=== PATIENT | female | born 1945 | race Two or more races ===

== ENCOUNTER → 2016-05-28 | Outpatient (CLI) | payer MEDICARE, OTHER ==
[~2016-05-28] MED LIST: ATENOLOL25 MG ORAL; CALCIUM CARBON500 M1 PO; COZAAR50 MG ORAL; DITROPAN10 MG ORAL; FERROUS SULFAT325 MG ORAL; LEVOTHYROXINE50 MCG ORAL; NORVASC5 MG ORAL; SIMVASTATIN20 MG ORAL
[2016-05-28 15:11] VITALS: BP 124/67
--- NOTE | 2016-05-28 15:36 | GI Progress Note ---
Assessment/Plan Problems: (1) GERD (gastroesophageal reflux disease) ICD Codes: K21.9 - Gastro-esophageal reflux disease without esophagitis SNOMED: 291861688 (2) Anemia ICD Codes: D64.9 - Anemia, unspecified SNOMED: 486138955 (3) Abdominal pain ICD Codes: R10.9 - Unspecified abdominal pain SNOMED: 11920343 Status: stable Status Narrative Seen with Dr. Russ. Assessment/Plan rx Bentyl cont dexilant recommend align RTC x 2 weeks Subjective Gastrointestinal/Abdominal: Reports: abdominal pain, other - gerd Objective Last 24 Hour Vital Signs Date Time Temp Pulse Resp B/P Pulse Ox O2 Delivery O2 Flow Rate FiO2 05/28/16 15:11 98.0 68 16 124/67 General Appearance: no apparent distress, alert Cardiovascular: normal rate Respiratory/Chest: normal breath sounds, no respiratory distress Abdominal Exam: normal bowel sounds, non tender, soft Extremities: normal range of motion Objective Endoscopy Procedure Note Indication for Procedure: anemia Procedures Performed: EGD, colonoscopy Operative Findings/Diagnosis: diverticulosis MARLON RUSS - Dec 26, 2015 10:24 Alina Han N.P. May 28, 2016 15:36
== END | disposition home or self-care (01) ==
LOC: PAN 14:57
DX: K21.9 Gastro-esophageal reflux disease without esophagitis (principal); D64.9 Anemia, unspecified; R10.9 Unspecified abdominal pain
CPT/HCPCS: 99211

== ENCOUNTER → 2016-06-19 | Outpatient (CLI) | payer MEDICARE, OTHER ==
[~2016-06-19] MED LIST changes: +ALIGN4 M1 PO; +BENTYL10 MG ORAL; +DEXILANT30 MG ORAL
--- NOTE | 2016-06-19 14:25 | GI Progress Note ---
Assessment/Plan Problems: (1) Bloating symptom ICD Codes: R14.0 - Abdominal distension (gaseous) SNOMED: 178061248 (2) Abdominal bloating ICD Codes: R14.0 - Abdominal distension (gaseous) SNOMED: 073191935 (3) Abdominal pain ICD Codes: R10.9 - Unspecified abdominal pain SNOMED: 68844237 (4) GERD (gastroesophageal reflux disease) ICD Codes: K21.9 - Gastro-esophageal reflux disease without esophagitis SNOMED: 499815502 (5) Anemia ICD Codes: D64.9 - Anemia, unspecified SNOMED: 687755345 Status: stable Status Narrative Seen with Dr. Russ. Assessment/Plan ordered Breath Test @ [facility] - hold dexilant - hold align cont Bentyl RTC post procedure. Subjective Subjective abdominal bloating Objective T 98.1 BP 130/60 P 64 100 RA General Appearance: alert Cardiovascular: normal rate Respiratory/Chest: lungs clear, normal breath sounds, no respiratory distress Abdominal Exam: normal bowel sounds, non tender, soft Extremities: normal range of motion Alina Han N.P. Jun 19, 2016 14:25
[2016-06-19 14:38] VITALS: BP 130/60
== END | disposition home or self-care (01) ==
LOC: PAN 13:42
DX: R14.0 Abdominal distension (gaseous) (principal); K21.9 Gastro-esophageal reflux disease without esophagitis; D64.9 Anemia, unspecified; R10.9 Unspecified abdominal pain
CPT/HCPCS: 99211

== ENCOUNTER 2016-08-06 13:44 | Outpatient (CLI) | payer MEDICARE, OTHER ==
--- NOTE | 2016-08-06 14:03 | GI Progress Note ---
Assessment/Plan Problems: (1) Small intestinal bacterial overgrowth ICD Codes: K63.89 - Other specified diseases of intestine SNOMED: 372768142 (2) Bloating symptom ICD Codes: R14.0 - Abdominal distension (gaseous) SNOMED: 196918495 (3) GERD (gastroesophageal reflux disease) ICD Codes: K21.9 - Gastro-esophageal reflux disease without esophagitis SNOMED: 276374788 (4) Anemia ICD Codes: D64.9 - Anemia, unspecified SNOMED: 901992137 (5) Abdominal bloating ICD Codes: R14.0 - Abdominal distension (gaseous) SNOMED: 357447277 (6) Abdominal pain ICD Codes: R10.9 - Unspecified abdominal pain SNOMED: 17876968 Status: stable Status Narrative Seen with Dr. Russ. Assessment/Plan BT, positive for SIBO >> tx Xifaxin elevated CEA, will monitor RTC x 3 months Subjective Subjective abdominal bloating Objective T 98 BP 133/53 P 74 93 RA Denies weight loss. General Appearance: no apparent distress, alert Cardiovascular: normal rate Respiratory/Chest: normal breath sounds, no respiratory distress Abdominal Exam: normal bowel sounds, non tender, soft Extremities: normal range of motion Alina Han N.P. Aug 06, 2016 14:03
== END 2016-08-06 14:15 | disposition home or self-care (01) ==
LOC: PAN 13:44
DX: A04.8 Other specified bacterial intestinal infections (principal); R14.0 Abdominal distension (gaseous); K21.9 Gastro-esophageal reflux disease without esophagitis; D64.9 Anemia, unspecified; R10.9 Unspecified abdominal pain
CPT/HCPCS: 99211

== ENCOUNTER 2017-02-14 20:11 | Emergency (ER) | payer MEDICARE, OTHER ==
[~2017-02-14] VITALS: Ht 152.4 cm; Wt 73.0 kg
[2017-02-14 20:30] VITALS: BP 143/68
[2017-02-14] MEDS ORDERED: KENALOG 0.5% CR15 GM APPLIC (20:41)
[2017-02-14 20:50] VITALS: BP 143/68
--- NOTE | 2017-02-16 07:26 | Emergency Room Report ---
History of Present Illness General Chief Complaint: Skin Rash/Abscess Source: Patient, Family Member Present Illness HPI Patient is a 71-year-old female presented after increased left upper extremity discomfort. The patient gradual onset of symptoms. Patient reported having approximately one day of increased itchiness to her left hand. This was associated with increased swelling. Patient prior history of breast cancer and lymph node dissection on the left side. She denied any fever. She felt this may have been related to insect sting from a bee. Allergies: Coded Allergies: No Known Allergies (Unverified , 10/31/15) Patient History Reviewed Nursing Documentation: PMH: Agreed, PSxH: Agreed Nursing Documentation-PMH Hx Cardiac Problems: Yes Hx Hypertension: Yes Hx Cancer: Yes Hx Gastrointestinal Problems: Yes Hx Neurological Problems: No Review of Systems All Other Systems: negative except mentioned in HPI Physical Exam Vital Signs Date Time Temp Pulse Resp B/P (MAP) Pulse Ox O2 Delivery O2 Flow Rate FiO2 02/14/17 20:16 98.2 74 16 143/68 98 Room Air General Appearance: well appearing, no apparent distress, alert, GCS 15 Head: normocephalic, atraumatic ENT: hearing grossly normal, normal voice Neck: full range of motion, supple Respiratory: no respiratory distress, speaking full sentences Cardiovascular #1: normal inspection Musculoskeletal: normal inspection, back normal, no calf tenderness Neurologic: normal inspection, alert, oriented x3, normal gait Psychiatric: mood/affect normal Skin: other - swelling to finger with papular lesion no erythema Medical Decision Making Diagnostic Impression: Primary Impression: Dermatitis ER Course Patient presented for skin rash. Differential diagnosis included was not limited to cellulitis, DVT, dyshidrotic eczema, Raynaud's disease, among others. Patient's benign exam and does not appear to require any further imaging or laboratory testing at this time. The patient presented to contact dermatitis versus eczema. The patient was given prescription for triamcinolone cream. Last Vital Signs Date Time Temp Pulse Resp B/P (MAP) Pulse Ox O2 Delivery O2 Flow Rate FiO2 02/14/17 20:50 98.2 78 16 143/68 98 Room Air Status: improved Disposition: HOME, SELF-CARE Condition: Stable Scripts Triamcinolone Acet (Triamcinolone Acetonide) 15 Gm Cream..g. 15 GM APPLIC DAILY, #15 GM Prov: Vance Ta 02/14/17 Referrals: MARLON VALDIVIA (PCP) Patient Instructions: Contact Dermatitis Vance Ta Feb 16, 2017 07:26
== END 2017-02-14 20:50 | disposition home or self-care (01) ==
LOC: EMR 20:25
DX: L30.9 Dermatitis, unspecified (principal); I10 Essential (primary) hypertension
CPT/HCPCS: 99283

== ENCOUNTER 2017-03-22 07:39 | Inpatient (IN) | payer MEDICARE, OTHER ==
[~2017-03-22] VITALS: Ht 152.4 cm; Wt 77.1 kg
[~2017-03-22 07:39] MED LIST changes: +KENALOG 0.5% CR15 GM APPLIC
[2017-03-22] MEDS ORDERED: Ipratropium 0.02% Inh Soln 2.5ml UD HHN ONE (08:15)
[2017-03-22] MEDS ORDERED: Albuterol ud Inhalation HHN ONE (08:15)
--- NOTE | 2017-03-22 08:16 | Emergency Room Report ---
History of Present Illness General Chief Complaint: Upper Respiratory Illness Source: Patient, Family Member - daughter translated Present Illness HPI The patient presents with several days of cough. She also has some chest pain is 5/10 when she coughs. There is no nausea vomiting diarrhea dysuria rashes joint pain. Is a dry cough that is not productive. She does not use an inhaler home. Known renal insufficiency. No diabetes. Allergies: Coded Allergies: No Known Allergies (Unverified , 10/31/15) Patient History Past Medical History: see triage record Past Surgical History: hysterectomy, other - masectomy L, knee surgery, cataract surgery Social History: Denies: smoking, alcohol use, drug use Social History Narrative drove herself here Reviewed Nursing Documentation: PMH: Agreed, PSxH: Agreed Nursing Documentation-PMH Past Medical History: No Stated History Hx Cardiac Problems: Yes Hx Hypertension: Yes Hx Cancer: Yes Hx Gastrointestinal Problems: Yes Hx Neurological Problems: No Review of Systems All Other Systems: negative except mentioned in HPI Physical Exam Vital Signs Date Time Temp Pulse Resp B/P (MAP) Pulse Ox O2 Delivery O2 Flow Rate FiO2 03/22/17 07:49 98.4 86 22 148/79 95 Room Air Sp02 EP Interpretation: reviewed, abnormal General Appearance: well appearing, no apparent distress, GCS 15 Head: normocephalic Eyes: bilateral eye normal inspection, bilateral eye PERRL - cataract surgery ENT: moist mucus membranes Neck: supple Respiratory: crackles, wheezing - post tussive, expiration, other - L masectomy Cardiovascular #1: regular rate, rhythm Cardiovascular #2: 2+ radial (R) Gastrointestinal: normal inspection, normal bowel sounds, non tender, no mass, non-distended Musculoskeletal: back normal, gait/station normal, normal range of motion Neurologic: alert, oriented x3, grossly normal Psychiatric: mood/affect normal Skin: normal inspection, warm/dry Medical Decision Making Diagnostic Impression: Primary Impression: Pneumonia Qualified Codes: J18.1 - Lobar pneumonia, unspecified organism Additional Impressions: Renal insufficiency Bronchospasm ER Course The patient presents with cough and chest pain. Differential includes acute myocardial infarction, influenza, bronchitis, spasm, pneumonia amongst others. Her exam is consistent with bronchospasm. She'll be evaluated with EKG and a chest x-ray with labs. She'll be treated with a breathing treatment in Tylenol for the chest pain. Labs will be obtained. Patient is coughing less as after breathing treatment. EKG is right bundle branch block no acute injury. X-ray shows right middle lobe infiltrate with Mica B line's. Labs are significant for negative troponin BNP with a normal white count. Influenza is negative also. The patient is reassessed she states she's no better at this time. She declines any more pain medication. Due to the infiltrate the patient will be admitted to the hospital and IV antibiotics started after blood cultures obtained. Due to VS, no lactate ordered. Poor toleration of IV azithromycin - given PO. Dr. Cotton requested Dr. Ibrahim who requested Dr. Kelly. Admit med. Laboratory Tests Test 03/22/17 08:30 03/22/17 09:10 White Blood Count 7.6 K/UL (4.8-10.8) Red Blood Count 4.64 M/UL (4.20-5.40) Hemoglobin 13.3 G/DL (12.0-16.0) Hematocrit 41.2 % (37.0-47.0) Mean Corpuscular Volume 89 FL (80-99) Mean Corpuscular Hemoglobin 28.6 PG (27.0-31.0) Mean Corpuscular Hemoglobin Concent 32.3 G/DL (32.0-36.0) Red Cell Distribution Width 11.5 % (11.6-14.8) L Platelet Count 222 K/UL (150-450) Mean Platelet Volume 9.2 FL (6.5-10.1) Neutrophils (%) (Auto) 47.5 % (45.0-75.0) Lymphocytes (%) (Auto) 24.7 % (20.0-45.0) Monocytes (%) (Auto) 13.7 % (1.0-10.0) H Eosinophils (%) (Auto) 12.5 % (0.0-3.0) H Basophils (%) (Auto) 1.6 % (0.0-2.0) Prothrombin Time 11.0 SEC (9.30-11.50) Prothrombin Time INR 1.1 (0.9-1.1) PTT 27 SEC (23-33) Sodium Level 137 MMOL/L (136-145) Potassium Level 3.9 MMOL/L (3.5-5.1) Chloride Level 102 MMOL/L (98-107) Carbon Dioxide Level 28 MMOL/L (21-32) Anion Gap 7 mmol/L (5-15) Blood Urea Nitrogen 30 mg/dL (7-18) H Creatinine 1.8 MG/DL (0.55-1.30) H Estimate Glomerular Filtration Rate mL/min (>60) Glucose Level 103 MG/DL (74-106) Calcium Level 9.2 MG/DL (8.5-10.1) Total Bilirubin 0.4 MG/DL (0.2-1.0) Aspartate Amino Transferase (AST) 25 U/L (15-37) Alanine Aminotransferase (ALT) 26 U/L (12-78) Alkaline Phosphatase 77 U/L (46-116) Total Creatine Kinase 122 U/L (26-308) Troponin I 0.000 ng/mL (0.000-0.056) Pro-B-Type Natriuretic Peptide 88 pg/mL (0-125) Total Protein 7.8 G/DL (6.4-8.2) Albumin 3.7 G/DL (3.4-5.0) Globulin 4.1 g/dL Albumin/Globulin Ratio 0.9 (1.0-2.7) L Urine Color Pale yellow Urine Appearance Clear Urine pH 6 (4.5-8.0) Urine Specific [place] 1.010 (1.005-1.035) Urine Protein 2+ (NEGATIVE) H Urine Glucose (UA) Negative (NEGATIVE) Urine Ketones Negative (NEGATIVE) Urine Occult Blood 1+ (NEGATIVE) H Urine Nitrite Negative (NEGATIVE) Urine Bilirubin Negative (NEGATIVE) Urine Urobilinogen Normal MG/DL (0.0-1.0) Urine Leukocyte Esterase 2+ (NEGATIVE) H Urine RBC 0-2 /HPF (0 - 2) Urine WBC 2-4 /HPF (0 - 2) Urine Squamous Epithelial Cells Few /LPF (NONE/OCC) Urine Bacteria Few /HPF (NONE) Microbiology Date/Time Source Procedure Growth Status 03/22/17 08:10 Nasal Nares Influenza Types A,B Antigen (MAVIS) - Final Complete EKG Diagnostic Results Rate: normal Rhythm: NSR ST Segments: no acute changes Rhythm Strip Diag. Results EP Interpretation: yes Rhythm: NSR, no PVC's, no ectopy Chest X-Ray Diagnostic Results Chest X-Ray Diagnostic Results : Chest X-Ray Ordered: Yes # of Views/Limited/Complete: 1 View Indication: Other EP Interpretation: Yes Interpretation: no effusion, no pneumothorax, other - [employer] L Impression: Other Electronically Signed by: Electronically signed by Poli Tena MD Status: improved Referrals: MARLON COTTON (PCP) Poli Tena M.D. Mar 22, 2017 08:16
[2017-03-22 08:46] LABS: BASOPHILS % (AUTO) 1.6 % (0.0-2.0); EOSINOPHILS % (AUTO) 12.5 % (0.0-3.0); HEMATOCRIT 41.2 % (37.0-47.0); HEMOGLOBIN 13.3 G/DL (12.0-16.0); LYMPHOCYTES % (AUTO) 24.7 % (20.0-45.0); MEAN CORPUSCULAR VOLUME 89 FL (80-99); MONOCYTES % (AUTO) 13.7 % (1.0-10.0); NEUTROPHILS % (AUTO) 47.5 % (45.0-75.0); PLATELET COUNT 222 K/UL (150-450); RED BLOOD COUNT 4.64 M/UL (4.20-5.40); RED CELL DISTRIBUTION WIDTH 11.5 % (11.6-14.8); WHITE BLOOD COUNT 7.6 K/UL (4.8-10.8)
[2017-03-22 08:49] VITALS: BP 137/64
[2017-03-22 08:56] LABS: INR 1.1 (0.9-1.1)
[2017-03-22 09:01] LABS: ANION GAP 7 mmol/L (5-15); BLOOD UREA NITROGEN 30 mg/dL (7-18); CALCIUM 9.2 MG/DL (8.5-10.1); CARBON DIOXIDE 28 MMOL/L (21-32); CHLORIDE 102 MMOL/L (98-107); CREATININE 1.8 MG/DL (0.55-1.30); POTASSIUM 3.9 MMOL/L (3.5-5.1); SODIUM 137 MMOL/L (136-145)
[2017-03-22 09:15] LABS: ALANINE AMINOTRANSFERASE 26 U/L (12-78); ALBUMIN 3.7 G/DL (3.4-5.0); ALBUMIN/GLOBULIN RATIO 0.9 (1.0-2.7); ALKALINE PHOSPHATASE 77 U/L (46-116); ASPARTATE AMINO TRANSFERASE 25 U/L (15-37); BILIRUBIN,TOTAL 0.4 MG/DL (0.2-1.0); CREATINE KINASE 122 U/L (26-308)
--- NOTE | 2017-03-22 09:20 | Diagnostic Imaging Report ---
Indication: Cough Technique: XRAY Chest 1v Comparison: None Findings: Heart size within normal limits given technique. Atherosclerotic calcifications noted in the aorta. There is mild interstitial prominence. There is streaky opacity in the right mid/lower lung. No pleural effusion. No pneumothorax. There are changes noted in the spine. No acute osseous abnormality seen. Impression: Nonspecific interstitial prominence with asymmetric streaky opacities in the right mid/lower lung which may be related to atelectasis or scarring however developing pneumonia is not entirely excluded. Clinical correlation and follow-up exam recommended.
[2017-03-22 09:22] LABS: APPEARANCE,URINE CLEAR; BILIRUBIN, URINE NEGATIVE (NEGATIVE); COLOR,URINE PALE YELLOW; GLUCOSE, URINE (UA) NEGATIVE (NEGATIVE); KETONES,URINE NEGATIVE (NEGATIVE); LEUKOCYTE ESTERASE ,URINE 2+ (NEGATIVE); NITRITE,URINE NEGATIVE (NEGATIVE); PH,URINE 6 (4.5-8.0); PROTEIN,URINE 2+ (NEGATIVE); UROBILINOGEN,URINE NORMAL MG/DL (0.0-1.0)
[2017-03-22] MEDS ORDERED: Azithromycin 500 MG in D5W 275 ML IVPB ONE (09:45)
[2017-03-22] MEDS ORDERED: cefTRIAXone 1 GM in NS 55 ML IVPB ONE (09:45)
[2017-03-22] MEDS ORDERED: UNOBMED (09:49)
[2017-03-22] MEDS ORDERED: Azithromycin 500mg Inj IV ONE (10:02)
[2017-03-22] MEDS ORDERED: Azithromycin 250mg tab ORAL ONE (10:45)
[2017-03-22] MEDS ORDERED: Morphine Sulfate 4mg/ml Inj IVP PRN (11:00)
[2017-03-22] MEDS ORDERED: Miralax 17gm pkt ORAL PRN (11:00)
[2017-03-22] MEDS ORDERED: LORazepam Inj 2mg/ml 1ml IV PRN (11:00)
[2017-03-22 11:14] LABS: CREATINE KINASE 128 U/L (26-308)
--- NOTE | 2017-03-22 11:43 | History and Physical ---
History of Present Illness General Date patient seen: Mar 22, 2017 Reason for Hospitalization: Upper Respiratory Illness Present Illness HPI 71 year old female with hx of renal insufficiency presented to ER with several days of cough, chest pain is 5/10 when she coughs and flu like symptoms There is no nausea vomiting diarrhea dysuria rashes joint pain. She does not use an inhaler home. Her cxr showed RLL infiltrate and she is admitted for further evaluation and treatment. Allergies: Coded Allergies: No Known Allergies (Unverified , 10/31/15) Medication History Scheduled Amlodipine Besylate (Norvasc), 5 MG ORAL DAILY, (Reported) Atenolol* (Tenormin*), 25 MG ORAL DAILY, (Reported) Calcium Carbonate (Calcium Carbonate), 500 MG PO DAILY, (Reported) Dexlansoprazole (Dexilant), 30 MG ORAL DAILY, (Reported) Dicyclomine Hcl* (Bentyl*), 10 MG ORAL FOUR TIMES A DAY, (Reported) Ferrous Sulfate* (Ferrous Sulfate*), 325 MG ORAL DAILY, (Reported) Levothyroxine Sodium* (Levothyroxine Sodium*), 50 MCG ORAL DAILY, (Reported) Losartan Potassium* (Cozaar*), Unknown Dose ORAL DAILY, (Reported) Oxybutynin Chloride (Oxybutynin Chloride), 5 MG ORAL DAILY, (Reported) Simvastatin (Zocor), 20 MG ORAL BEDTIME, (Reported) Triamcinolone Acet (Triamcinolone Acetonide), 15 GM APPLIC DAILY Miscellaneous Medications Bifidobacterium Infantis (Align), 4 MG PO, (Reported) Unable to Obtain Medications (Unable To Obtain Meds), (Reported) Patient History Healthcare decision maker Resuscitation status Advanced Directive on File Past Medical/Surgical History Past Medical/Surgical History: (1) Renal insufficiency (2) GERD (gastroesophageal reflux disease) Review of Systems All Other Systems: negative except mentioned in HPI Physical Exam General Appearance: WD/WN Lines, tubes and drains: peripheral HEENT: normocephalic, atraumatic Neck: non-tender, normal alignment Respiratory/Chest: chest wall non-tender, rhonchi - left, rhonchi - right Breasts: no masses Cardiovascular/Chest: normal peripheral pulses Abdomen: normal bowel sounds, non tender Genitourinary/Rectal: normal rectal exam Last 24 Hour Vital Signs Date Time Temp Pulse Resp B/P (MAP) Pulse Ox O2 Delivery O2 Flow Rate FiO2 03/22/17 11:00 78 19 134/68 99 Room Air 03/22/17 10:24 98.5 75 18 95 Room Air 03/22/17 08:49 98.3 18 137/64 96 Room Air 03/22/17 08:31 83 22 100 Room Air 21 03/22/17 08:20 82 16 100 Room Air 21 03/22/17 08:20 82 16 Room Air 21 03/22/17 08:02 Room Air 03/22/17 07:49 98.4 86 22 148/79 95 Room Air Laboratory Tests Test 03/22/17 08:30 03/22/17 09:10 White Blood Count 7.6 K/UL (4.8-10.8) Red Blood Count 4.64 M/UL (4.20-5.40) Hemoglobin 13.3 G/DL (12.0-16.0) Hematocrit 41.2 % (37.0-47.0) Mean Corpuscular Volume 89 FL (80-99) Mean Corpuscular Hemoglobin 28.6 PG (27.0-31.0) Mean Corpuscular Hemoglobin Concent 32.3 G/DL (32.0-36.0) Red Cell Distribution Width 11.5 % (11.6-14.8) L Platelet Count 222 K/UL (150-450) Mean Platelet Volume 9.2 FL (6.5-10.1) Neutrophils (%) (Auto) 47.5 % (45.0-75.0) Lymphocytes (%) (Auto) 24.7 % (20.0-45.0) Monocytes (%) (Auto) 13.7 % (1.0-10.0) H Eosinophils (%) (Auto) 12.5 % (0.0-3.0) H Basophils (%) (Auto) 1.6 % (0.0-2.0) Prothrombin Time 11.0 SEC (9.30-11.50) Prothromb Time International Ratio 1.1 (0.9-1.1) Activated Partial Thromboplast Time 27 SEC (23-33) Sodium Level 137 MMOL/L (136-145) Potassium Level 3.9 MMOL/L (3.5-5.1) Chloride Level 102 MMOL/L (98-107) Carbon Dioxide Level 28 MMOL/L (21-32) Anion Gap 7 mmol/L (5-15) Blood Urea Nitrogen 30 mg/dL (7-18) H Creatinine 1.8 MG/DL (0.55-1.30) H Estimat Glomerular Filtration Rate mL/min (>60) Glucose Level 103 MG/DL (74-106) Uric Acid 6.9 MG/DL (2.6-7.2) Calcium Level 9.2 MG/DL (8.5-10.1) Total Bilirubin 0.4 MG/DL (0.2-1.0) Aspartate Amino Transf (AST/SGOT) 25 U/L (15-37) Alanine Aminotransferase (ALT/SGPT) 26 U/L (12-78) Alkaline Phosphatase 77 U/L (46-116) Total Creatine Kinase 128 U/L (26-308) Troponin I 0.000 ng/mL (0.000-0.056) Pro-B-Type Natriuretic Peptide 88 pg/mL (0-125) Total Protein 7.8 G/DL (6.4-8.2) Albumin 3.7 G/DL (3.4-5.0) Globulin 4.1 g/dL Albumin/Globulin Ratio 0.9 (1.0-2.7) L Urine Color Pale yellow Urine Appearance Clear Urine pH 6 (4.5-8.0) Urine Specific [place] 1.010 (1.005-1.035) Urine Protein 2+ (NEGATIVE) H Urine Glucose (UA) Negative (NEGATIVE) Urine Ketones Negative (NEGATIVE) Urine Occult Blood 1+ (NEGATIVE) H Urine Nitrite Negative (NEGATIVE) Urine Bilirubin Negative (NEGATIVE) Urine Urobilinogen Normal MG/DL (0.0-1.0) Urine Leukocyte Esterase 2+ (NEGATIVE) H Urine RBC 0-2 /HPF (0 - 2) Urine WBC 2-4 /HPF (0 - 2) Urine Squamous Epithelial Cells Few /LPF (NONE/OCC) Urine Bacteria Few /HPF (NONE) Microbiology Date/Time Source Procedure Growth Status 03/22/17 08:10 Nasal Nares Influenza Types A,B Antigen (MAVIS) - Final Complete Height (Feet): 5 Height (Inches): 2.00 Weight (Pounds): 170 Medications Current Medications Medications (Trade) Dose Ordered Sig/Kathryn Route PRN Reason Start Time Stop Time Status Last Admin Dose Admin Acetaminophen (Tylenol) 650 mg Q4H PRN ORAL FEVER 03/22/17 11:00 04/21/17 10:59 Albuterol/ Ipratropium (Albuterol/ Ipratropium) 3 ml EVERY 4 HOURS PRN HHN Shortness of Breath 03/22/17 11:00 03/27/17 10:59 Amlodipine Besylate (Norvasc) 5 mg DAILY ORAL 03/23/17 09:00 04/22/17 08:59 Atenolol (Tenormin) 25 mg DAILY ORAL 03/23/17 09:00 04/22/17 08:59 Cefepime HCl 1 gm/ Dextrose 55 ml @ 110 mls/hr Q24H IVPB 03/23/17 09:00 03/30/17 08:59 Dextrose (Dextrose 50%) STAT PRN IV Hypoglycemia 03/22/17 11:00 04/21/17 10:59 Heparin Sodium (Porcine) (Heparin 5000 units/ml) 5,000 units EVERY 12 HOURS SUBQ 03/22/17 21:00 04/21/17 20:59 Levothyroxine Sodium (Synthroid) 50 mcg DAILY@0630 ORAL 03/23/17 06:30 04/22/17 06:29 Lorazepam (Ativan 2mg/ml 1ml) 2 mg EVERY 2 HOURS PRN IV For Anxiety 03/22/17 11:00 03/29/17 10:59 Losartan Potassium (Cozaar) 10 mg DAILY ORAL 03/23/17 09:00 04/22/17 08:59 Morphine Sulfate (Morphine Sulfate) 4 mg EVERY 4 HOURS PRN IVP Severe Pain (Pain Scale 7-10) 03/22/17 11:00 03/29/17 10:59 Ondansetron HCl (Zofran) 4 mg Q6H PRN IVP Nausea & Vomiting 03/22/17 11:00 04/21/17 10:59 Polyethylene Glycol (Miralax) 17 gm DAILYPRN PRN ORAL Constipation 03/22/17 11:00 04/21/17 10:59 Sodium Chloride 1,000 ml @ 50 mls/hr Q20H IV 03/22/17 11:00 04/21/17 10:59 Vancomycin HCl (Vanco rx to dose) 1 ea DAILY PRN MISC Per rx protocol 03/22/17 12:00 04/21/17 11:59 Vancomycin/Sodium Chloride 250 ml @ 166.667 mls/hr Q24H IVPB 03/22/17 12:00 03/27/17 11:59 Assessment/Plan Problem List: (1) Pneumonia ICD Codes: J18.9 - Pneumonia, unspecified organism SNOMED: 848971190, 325258997 Qualifiers: Qualified Codes: J18.1 - Lobar pneumonia, unspecified organism (2) Anemia ICD Codes: D64.9 - Anemia, unspecified SNOMED: 965288848 Assessment/Plan resiratory treatment IV hydration check cultures chest pt respiratory treatment titrate fio2 to sat of 92% dvt prophylaxis. BRITTANEY BAGLEY Mar 22, 2017 11:43
[2017-03-22] MEDS ORDERED: Flu Vaccine Quadrivalent 0.5ml IM ONE (14:30)
[2017-03-22] MEDS ORDERED: Pneumococcal Vaccine 25mcg/0.5ml IM ONE (14:30)
[2017-03-22 16:00] VITALS: BP 143/73
[2017-03-22] MEDS: Vancomycin 750mg/NS 250ml IVPB SCH (16:57)
[2017-03-22] MEDS: Heparin 5000 units/ml inj SUBQ SCH (20:48)
[2017-03-22] MEDS ORDERED: Cefepime HCl 2 GM in D5W 110 ML IV SCH (21:00)
[2017-03-22] MEDS: Albuterol/Ipratropium 3ml neb HHN PRN (22:32)
[2017-03-22] MEDS ORDERED: Vancomycin 1 GM in D5W 275 ML IV SCH (23:00)
[2017-03-23 04:17] VITALS: BP 141/67
[2017-03-23] MEDS: Albuterol/Ipratropium 3ml neb HHN PRN (05:04)
[2017-03-23 08:00] VITALS: BP 162/69
[2017-03-23 08:20] LABS: BASOPHILS % (AUTO) 0.5 % (0.0-2.0); EOSINOPHILS % (AUTO) 0.9 % (0.0-3.0); HEMATOCRIT 37.6 % (37.0-47.0); HEMOGLOBIN 12.4 G/DL (12.0-16.0); LYMPHOCYTES % (AUTO) 9.1 % (20.0-45.0); MEAN CORPUSCULAR VOLUME 89 FL (80-99); MONOCYTES % (AUTO) 6.6 % (1.0-10.0); PLATELET COUNT 209 K/UL (150-450); RED BLOOD COUNT 4.24 M/UL (4.20-5.40); RED CELL DISTRIBUTION WIDTH 11.3 % (11.6-14.8); WHITE BLOOD COUNT 11.8 K/UL (4.8-10.8)
[2017-03-23 08:43] LABS: ALBUMIN 3.2 G/DL (3.4-5.0); ANION GAP 12 mmol/L (5-15); BLOOD UREA NITROGEN 29 mg/dL (7-18); CALCIUM 8.8 MG/DL (8.5-10.1); CARBON DIOXIDE 23 MMOL/L (21-32); CHLORIDE 100 MMOL/L (98-107); CREATININE 1.6 MG/DL (0.55-1.30); PHOSPHORUS 2.6 MG/DL (2.5-4.9); POTASSIUM 3.7 MMOL/L (3.5-5.1); SODIUM 135 MMOL/L (136-145)
[2017-03-23] MEDS ORDERED: Cefepime 1gm/D5W 55ml IVPB SCH ×2 (09:00)
[2017-03-23] MEDS ORDERED: Losartan 50mg tab ORAL SCH (09:00)
[2017-03-23] MEDS: Atenolol 25mg tab ORAL SCH (09:26)
[2017-03-23] MEDS: Heparin 5000 units/ml inj SUBQ SCH ×2 (09:28→20:23)
[2017-03-23] MEDS: Vancomycin 750mg/NS 250ml IVPB SCH (11:44)
[2017-03-23 12:00] VITALS: BP 131/84
[2017-03-23 16:00] VITALS: BP 155/69
--- NOTE | 2017-03-23 17:03 | Pulmonology Progress Note ---
Assessment/Plan Problems: (1) Pneumonia (2) Anemia Assessment/Plan still coughing no phlegmn cultures pending anemia w/u pending renal us dvt prophylaxis. Subjective ROS Limited/Unobtainable: No Constitutional: Reports: no symptoms HEENT: Repors: no symptoms Respiratory: Reports: no symptoms Cardiovascular: Reports: no symptoms Allergies: Coded Allergies: No Known Allergies (Unverified , 10/31/15) Objective Last 24 Hour Vital Signs Date Time Temp Pulse Resp B/P (MAP) Pulse Ox O2 Delivery O2 Flow Rate FiO2 03/23/17 16:00 98.1 77 20 155/69 93 Room Air 03/23/17 13:21 97.9 03/23/17 12:00 97.9 74 19 131/84 95 Room Air 03/23/17 09:26 92 169/69 03/23/17 09:26 92 162/69 03/23/17 08:00 97.9 92 19 162/69 96 Room Air 03/23/17 05:03 89 20 92 Room Air 21 03/23/17 05:03 21 03/23/17 05:03 89 20 Room Air 21 03/23/17 04:17 99.9 93 18 141/67 94 93 03/22/17 22:44 89 22 99 Room Air 21 03/22/17 22:33 79 16 99 Room Air 21 03/22/17 22:32 86 16 Room Air 21 Intake and Output 03/22/17 03/23/17 19:00 07:00 Intake Total 785 ml 550 ml Balance 785 ml 550 ml Intake Oral 580 ml IV Total 205 ml 550 ml # Voids 2 4 General Appearance: WD/WN HEENT: normocephalic, atraumatic Respiratory/Chest: chest wall non-tender, lungs clear Breasts: no masses Cardiovascular: normal peripheral pulses, no JVD Abdomen: soft, non tender Genitourinary: normal external genitalia Extremities: no cyanosis Skin: no ulcers Neurologic/Psychiatric: alert, responsive Microbiology Date/Time Source Procedure Growth Status 03/22/17 08:10 Nasal Nares Influenza Types A,B Antigen (MAVIS) - Final Complete Laboratory Tests 03/23/17 06:10: White Blood Count 11.8#H, Red Blood Count 4.24, Hemoglobin 12.4, Hematocrit 37.6 , Mean Corpuscular Volume 89, Mean Corpuscular Hemoglobin 29.2, Mean Corpuscular Hemoglobin Concent 33.0, Red Cell Distribution Width 11.3L, Platelet Count 209, Mean Platelet Volume 9.0, Neutrophils (%) (Auto) 83.0H, Lymphocytes (%) (Auto) 9.1L, Monocytes (%) (Auto) 6.6, Eosinophils (%) (Auto) 0.9, Basophils (%) (Auto) 0.5, Sodium Level 135L, Potassium Level 3.7, Chloride Level 100, Carbon Dioxide Level 23, Anion Gap 12, Blood Urea Nitrogen 29H, Creatinine 1.6H, Estimat Glomerular Filtration Rate , Glucose Level 116H, Calcium Level 8.8, Phosphorus Level 2.6, Albumin 3.2L Current Medications Medications (Trade) Dose Ordered Sig/Kathryn Route PRN Reason Start Time Stop Time Status Last Admin Dose Admin Acetaminophen (Tylenol) 650 mg Q4H PRN ORAL FEVER 03/22/17 11:00 04/21/17 10:59 03/23/17 12:22 Albuterol/ Ipratropium (Albuterol/ Ipratropium) 3 ml EVERY 4 HOURS PRN HHN Shortness of Breath 03/22/17 11:00 03/27/17 10:59 03/23/17 05:04 Amlodipine Besylate (Norvasc) 5 mg DAILY ORAL 03/23/17 09:00 04/22/17 08:59 03/23/17 09:26 Atenolol (Tenormin) 25 mg DAILY ORAL 03/23/17 09:00 04/22/17 08:59 03/23/17 09:26 Cefepime HCl 1 gm/ Dextrose 55 ml @ 110 mls/hr Q24H IVPB 03/23/17 09:00 03/30/17 08:59 03/22/17 16:42 Dextrose (Dextrose 50%) STAT PRN IV Hypoglycemia 03/22/17 11:00 04/21/17 10:59 Heparin Sodium (Porcine) (Heparin 5000 units/ml) 5,000 units EVERY 12 HOURS SUBQ 03/22/17 21:00 04/21/17 20:59 03/23/17 09:28 Levothyroxine Sodium (Synthroid) 50 mcg DAILY@0630 ORAL 03/23/17 06:30 2/28/18 06:29 03/23/17 05:32 Lorazepam (Ativan 2mg/ml 1ml) 2 mg EVERY 2 HOURS PRN IV For Anxiety 03/22/17 11:00 03/29/17 10:59 Morphine Sulfate (Morphine Sulfate) 4 mg EVERY 4 HOURS PRN IVP Severe Pain (Pain Scale 7-10) 03/22/17 11:00 03/29/17 10:59 Ondansetron HCl (Zofran) 4 mg Q6H PRN IVP Nausea & Vomiting 03/22/17 11:00 04/21/17 10:59 Polyethylene Glycol (Miralax) 17 gm DAILYPRN PRN ORAL Constipation 03/22/17 11:00 04/21/17 10:59 Sodium Chloride 1,000 ml @ 50 mls/hr Q20H IV 03/22/17 11:00 04/21/17 10:59 03/23/17 09:41 Vancomycin HCl (Vanco rx to dose) 1 ea DAILY PRN MISC Per rx protocol 03/22/17 12:00 04/21/17 11:59 Vancomycin/Sodium Chloride 250 ml @ 166.667 mls/hr Q24H IVPB 03/22/17 12:00 03/27/17 11:59 03/23/17 11:44 BRITTANEY BAGLEY Mar 23, 2017 17:03
[2017-03-23] MEDS: Promethazine/Codeine 5ml UD ORAL PRN (18:14)
--- NOTE | 2017-03-23 18:15 | Consultation ---
Consult Note Consult Note asked to eval for renal failure The patient presents with several days of cough. She also has some chest pain is 5/10 when she coughs. There is no nausea vomiting diarrhea dysuria rashes joint pain. Is a dry cough that is not productive. She does not use an inhaler home. Known renal insufficiency. No diabetes. Hx Cardiac Problems: Yes Hx Hypertension: Yes Hx Cancer: Yes Hx Gastrointestinal Problems: Yes interviewed examined data reviewed . Assessment/Plan Admitted for respiratory infection renal failure- ? acute vs Chronic h/o Parathyroidectomy h/o Left breast surgery for Cancer h/o HTN h/o Diverticulitis h/o High Chol Plan: Antibiotics slow hydration monitor labs and chemistries Pulmonary toilet \check labs CINDY JUSTICE Mar 23, 2017 18:15
[2017-03-23] MEDS: D5NS 1,000 ML IV SCH (19:24)
[2017-03-23 20:00] VITALS: BP 142/64
--- NOTE | 2017-03-23 21:17 | Consultation ---
History of Present Illness General Date patient seen: Mar 23, 2017 Time patient seen: 21:08 Chief Complaint: Upper Respiratory Illness Present Illness HPI 71 y/o F with hx of HTN, CKD, Parathyroidectomy, Left breast surgery for Cancer , hysterectomy, L knee surgery, cataract surgery, Diverticulitis, HLD presents to ED on 03/22 with pleuritic chest pain, non productive cough. CXR showed RLL infiltrate. denies n/v/d, dysuria, rash, joint pain Allergies: Coded Allergies: No Known Allergies (Unverified , 10/31/15) Medication History Scheduled Amlodipine Besylate (Norvasc), 5 MG ORAL DAILY, (Reported) Atenolol* (Tenormin*), 25 MG ORAL DAILY, (Reported) Calcium Carbonate (Calcium Carbonate), 500 MG PO DAILY, (Reported) Dexlansoprazole (Dexilant), 30 MG ORAL DAILY, (Reported) Dicyclomine Hcl* (Bentyl*), 10 MG ORAL FOUR TIMES A DAY, (Reported) Ferrous Sulfate* (Ferrous Sulfate*), 325 MG ORAL DAILY, (Reported) Levothyroxine Sodium* (Levothyroxine Sodium*), 50 MCG ORAL DAILY, (Reported) Losartan Potassium* (Cozaar*), Unknown Dose ORAL DAILY, (Reported) Oxybutynin Chloride (Oxybutynin Chloride), 5 MG ORAL DAILY, (Reported) Simvastatin (Zocor), 20 MG ORAL BEDTIME, (Reported) Triamcinolone Acet (Triamcinolone Acetonide), 15 GM APPLIC DAILY Miscellaneous Medications Bifidobacterium Infantis (Align), 4 MG PO, (Reported) Unable to Obtain Medications (Unable To Obtain Meds), (Reported) Patient History Healthcare decision maker Resuscitation status Advanced Directive on File Patient History Narrative PMhx: as above SHx: Denies: smoking, alcohol use, drug use Fhx: non contributory Review of Systems All Other Systems: negative except mentioned in HPI Physical Exam Physical Exam Narrative General Appearance: WD/WN HEENT: normocephalic, atraumatic Respiratory/Chest: chest wall non-tender, lungs clear Breasts: no masses Cardiovascular: normal peripheral pulses, no JVD Abdomen: soft, non tender Genitourinary: normal external genitalia Extremities: no cyanosis Skin: no ulcers Neurologic/Psychiatric: alert, responsive Last 24 Hour Vital Signs Date Time Temp Pulse Resp B/P (MAP) Pulse Ox O2 Delivery O2 Flow Rate FiO2 03/23/17 19:23 77 155/69 03/23/17 16:00 98.1 77 20 155/69 93 Room Air 03/23/17 13:21 97.9 03/23/17 12:00 97.9 74 19 131/84 95 Room Air 03/23/17 09:26 92 169/69 03/23/17 09:26 92 162/69 03/23/17 08:00 97.9 92 19 162/69 96 Room Air 03/23/17 05:03 89 20 92 Room Air 21 03/23/17 05:03 21 03/23/17 05:03 89 20 Room Air 21 03/23/17 04:17 99.9 93 18 141/67 94 93 03/22/17 22:44 89 22 99 Room Air 21 03/22/17 22:33 79 16 99 Room Air 21 03/22/17 22:32 86 16 Room Air 21 Intake and Output 03/22/17 03/23/17 19:00 07:00 Intake Total 785 ml 550 ml Balance 785 ml 550 ml Intake Oral 580 ml IV Total 205 ml 550 ml # Voids 2 4 Laboratory Tests Test 03/23/17 06:10 White Blood Count 11.8 K/UL (4.8-10.8) #H Red Blood Count 4.24 M/UL (4.20-5.40) Hemoglobin 12.4 G/DL (12.0-16.0) Hematocrit 37.6 % (37.0-47.0) Mean Corpuscular Volume 89 FL (80-99) Mean Corpuscular Hemoglobin 29.2 PG (27.0-31.0) Mean Corpuscular Hemoglobin Concent 33.0 G/DL (32.0-36.0) Red Cell Distribution Width 11.3 % (11.6-14.8) L Platelet Count 209 K/UL (150-450) Mean Platelet Volume 9.0 FL (6.5-10.1) Neutrophils (%) (Auto) 83.0 % (45.0-75.0) H Lymphocytes (%) (Auto) 9.1 % (20.0-45.0) L Monocytes (%) (Auto) 6.6 % (1.0-10.0) Eosinophils (%) (Auto) 0.9 % (0.0-3.0) Basophils (%) (Auto) 0.5 % (0.0-2.0) Sodium Level 135 MMOL/L (136-145) L Potassium Level 3.7 MMOL/L (3.5-5.1) Chloride Level 100 MMOL/L (98-107) Carbon Dioxide Level 23 MMOL/L (21-32) Anion Gap 12 mmol/L (5-15) Blood Urea Nitrogen 29 mg/dL (7-18) H Creatinine 1.6 MG/DL (0.55-1.30) H Estimat Glomerular Filtration Rate mL/min (>60) Glucose Level 116 MG/DL (74-106) H Calcium Level 8.8 MG/DL (8.5-10.1) Phosphorus Level 2.6 MG/DL (2.5-4.9) C-Reactive Protein, Quantitative 3.9 mg/dL (0.00-0.90) H Albumin 3.2 G/DL (3.4-5.0) L Height (Feet): 5 Height (Inches): 2.00 Weight (Pounds): 170 Medications Current Medications Medications (Trade) Dose Ordered Sig/Kathryn Route PRN Reason Start Time Stop Time Status Last Admin Dose Admin Acetaminophen (Tylenol) 650 mg Q4H PRN ORAL FEVER 03/22/17 11:00 04/21/17 10:59 03/23/17 12:22 Albuterol/ Ipratropium (Albuterol/ Ipratropium) 3 ml EVERY 4 HOURS PRN HHN Shortness of Breath 03/22/17 11:00 03/27/17 10:59 03/23/17 05:04 Amlodipine Besylate (Norvasc) 5 mg BID ORAL 03/23/17 19:00 04/22/17 18:59 03/23/17 19:23 Atenolol (Tenormin) 25 mg DAILY ORAL 03/23/17 09:00 04/22/17 08:59 03/23/17 09:26 Cefepime HCl 1 gm/ Dextrose 55 ml @ 110 mls/hr Q24H IVPB 03/23/17 09:00 03/30/17 08:59 03/22/17 16:42 Dextrose (Dextrose 50%) STAT PRN IV Hypoglycemia 03/22/17 11:00 04/21/17 10:59 Dextrose/Sodium Chloride 1,000 ml @ 50 mls/hr Q20H IV 03/23/17 19:00 04/22/17 18:59 03/23/17 19:24 Heparin Sodium (Porcine) (Heparin 5000 units/ml) 5,000 units EVERY 12 HOURS SUBQ 03/22/17 21:00 04/21/17 20:59 03/23/17 20:23 Lansoprazole (Prevacid) 30 mg DAILY ORAL 03/23/17 19:00 04/22/17 18:59 03/23/17 19:23 Levothyroxine Sodium (Synthroid) 50 mcg DAILY@0630 ORAL 03/23/17 06:30 04/22/17 06:29 03/23/17 05:32 Lorazepam (Ativan 2mg/ml 1ml) 2 mg EVERY 2 HOURS PRN IV For Anxiety 03/22/17 11:00 03/29/17 10:59 Morphine Sulfate (Morphine Sulfate) 4 mg EVERY 4 HOURS PRN IVP Severe Pain (Pain Scale 7-10) 03/22/17 11:00 03/29/17 10:59 Ondansetron HCl (Zofran) 4 mg Q6H PRN IVP Nausea & Vomiting 03/22/17 11:00 04/21/17 10:59 Polyethylene Glycol (Miralax) 17 gm DAILYPRN PRN ORAL Constipation 03/22/17 11:00 04/21/17 10:59 Promethazine HCl/ Codeine (Phenergan with Codeine) 5 ml Q6H PRN ORAL For Cough 03/23/17 18:00 04/22/17 17:59 03/23/17 18:14 Vancomycin HCl (Vanco rx to dose) 1 ea DAILY PRN MISC Per rx protocol 03/22/17 12:00 04/21/17 11:59 Vancomycin/Sodium Chloride 250 ml @ 166.667 mls/hr Q24H IVPB 03/22/17 12:00 03/27/17 11:59 03/23/17 11:44 Assessment/Plan Assessment/Plan Abx: IV Vanco 03/22- CEfepime 03/22- Assessment: Cough- suspect CAP -influenza neg -CXR: nonspecific interstitial prominence with asymmetric streaky opacities in the right mid/lower lung which may be related to atelectasis or scarring however developing pneumonia is not entirely excluded. Leukocytosis, mild -afebrile -u/a no pyuria HTN CKD Parathyroidectomy Left breast surgery for Cancer hysterectomy L knee surgery cataract surgery Diverticulitis HLD Plan: -Switch IV Vanco/Cefepime #2 to Ceftriaxone and Azithromycin -f/u cx -Monitor CBC/BMP, temperatures -aspiratio precautions Thank you for this consultation. Will continue to follow along with you. Discussed with Yeimi Stephenson M.D. Mar 23, 2017 21:17
[2017-03-24] VITALS: BP 140/69
[2017-03-24] MEDS: cefTRIAXone 1 GM in D5W 55 ML IVPB SCH ×2 (00:01→23:00)
[2017-03-24] MEDS: Promethazine/Codeine 5ml UD ORAL PRN ×2 (01:32→23:54)
[2017-03-24 04:00] VITALS: BP 121/67
[2017-03-24 07:33] LABS: BASOPHILS % (AUTO) 0.7 % (0.0-2.0); EOSINOPHILS % (AUTO) 1.1 % (0.0-3.0); HEMATOCRIT 36.4 % (37.0-47.0); HEMOGLOBIN 12.3 G/DL (12.0-16.0); LYMPHOCYTES % (AUTO) 22.6 % (20.0-45.0); MEAN CORPUSCULAR VOLUME 89 FL (80-99); MONOCYTES % (AUTO) 8.8 % (1.0-10.0); NEUTROPHILS % (AUTO) 66.9 % (45.0-75.0); PLATELET COUNT 176 K/UL (150-450); RED BLOOD COUNT 4.11 M/UL (4.20-5.40); RED CELL DISTRIBUTION WIDTH 11.4 % (11.6-14.8); WHITE BLOOD COUNT 12.3 K/UL (4.8-10.8)
[2017-03-24 08:00] VITALS: BP 152/77
[2017-03-24 08:09] LABS: ALANINE AMINOTRANSFERASE 21 U/L (12-78); ALBUMIN/GLOBULIN RATIO 0.7 (1.0-2.7); ALKALINE PHOSPHATASE 65 U/L (46-116); ANION GAP 14 mmol/L (5-15); ASPARTATE AMINO TRANSFERASE 20 U/L (15-37); BLOOD UREA NITROGEN 22 mg/dL (7-18); CALCIUM 8.5 MG/DL (8.5-10.1); CARBON DIOXIDE 22 MMOL/L (21-32); CHLORIDE 103 MMOL/L (98-107); CHOLESTEROL 128 MG/DL (< 200); CREATINE KINASE 217 U/L (26-308); CREATININE 1.7 MG/DL (0.55-1.30); GAMMA GLUTAMYL TRANSPEPTIDASE 26 U/L (5-85); HDL CHOLESTEROL 63 MG/DL (40-60); PHOSPHORUS 3.1 MG/DL (2.5-4.9); POTASSIUM 3.2 MMOL/L (3.5-5.1); SODIUM 139 MMOL/L (136-145); TRIGLYCERIDES 107 MG/DL (30-150)
[2017-03-24 08:43] LABS: BILIRUBIN,TOTAL 0.3 MG/DL (0.2-1.0)
[2017-03-24] MEDS: Azithromycin 250mg tab ORAL SCH (08:49)
[2017-03-24] MEDS: Atenolol 25mg tab ORAL SCH (08:50)
[2017-03-24] MEDS: Heparin 5000 units/ml inj SUBQ SCH ×2 (08:54→21:13)
[2017-03-24] MEDS: Albuterol/Ipratropium 3ml neb HHN PRN (09:20)
--- NOTE | 2017-03-24 11:28 | Infectious Diseases Prog Note ---
Assessment/Plan Assessment/Plan Assessment: Cough/congestion- suspect CAP and iNfluenza (despite neg test): +body aches, runny nose/sore throat, +congestion, grandson recently with Flu -influenza neg -CXR: nonspecific interstitial prominence with asymmetric streaky opacities in the right mid/lower lung which may be related to atelectasis or scarring however developing pneumonia is not entirely excluded. Leukocytosis, mild, worsening -u/a no pyuria Fever HTN CKD Parathyroidectomy Left breast surgery for Cancer hysterectomy L knee surgery cataract surgery Diverticulitis HLD Plan: -Continue Ceftriaxone and Azithromycin abx d#3/5-7; add Tamiflu #1/ and resume IV vancomycin #3 to cover for S. aureus pending sputum cx -monitor closely- if worsening Resp status add IV vancomycin -03/23 SP IV Vanco, Cefepime #2 -f/u cx -Monitor CBC/BMP, temperatures -aspiratio precautions Thank you for this consultation. Will continue to follow along with you. Discussed with RN Subjective Allergies: Coded Allergies: No Known Allergies (Unverified , 10/31/15) Subjective spike T up to 102 last night, now 100.8 mildly worse leukocytosis on RA sp cx p +coughin, congestion Objective Vital Signs Last 24 Hour Vital Signs Date Time Temp Pulse Resp B/P (MAP) Pulse Ox O2 Delivery O2 Flow Rate FiO2 03/24/17 09:27 90 18 99 Room Air 21 03/24/17 09:23 88 20 98 Room Air 21 03/24/17 09:20 79 20 Room Air 21 03/24/17 08:51 77 152/77 03/24/17 08:50 77 152/77 03/24/17 08:00 100.8 77 17 152/77 97 Room Air 03/24/17 04:00 98.2 66 20 121/67 89 03/24/17 02:32 99.9 03/24/17 00:00 99.9 69 21 140/69 93 03/24/17 00:00 Room Air 03/23/17 20:33 82 20 Room Air 21 03/23/17 20:00 102.0 72 18 142/64 92 03/23/17 19:23 77 155/69 03/23/17 16:00 98.1 77 20 155/69 93 Room Air 03/23/17 12:00 97.9 74 19 131/84 95 Room Air Height (Feet): 5 Height (Inches): 2.00 Weight (Pounds): 170 Objective General Appearance: WD/WN HEENT: normocephalic, atraumatic Respiratory/Chest: chest wall non-tender, lungs clear Breasts: no masses Cardiovascular: normal peripheral pulses, no JVD Abdomen: soft, non tender Genitourinary: normal external genitalia Extremities: no cyanosis Skin: no ulcers Neurologic/Psychiatric: alert, responsive Microbiology Date/Time Source Procedure Growth Status 03/22/17 11:15 Blood Blood Culture - Preliminary NO GROWTH AFTER 24 HOURS Resulted 03/22/17 11:00 Blood Blood Culture - Preliminary NO GROWTH AFTER 24 HOURS Resulted 03/22/17 08:10 Nasal Nares Influenza Types A,B Antigen (MAVIS) - Final Complete Laboratory Tests Test 03/24/17 01:30 03/24/17 05:00 Urine Random Sodium 33 MEQ/L (20-110) White Blood Count 12.3 K/UL (4.8-10.8) H Red Blood Count 4.11 M/UL (4.20-5.40) L Hemoglobin 12.3 G/DL (12.0-16.0) Hematocrit 36.4 % (37.0-47.0) L Mean Corpuscular Volume 89 FL (80-99) Mean Corpuscular Hemoglobin 29.9 PG (27.0-31.0) Mean Corpuscular Hemoglobin Concent 33.7 G/DL (32.0-36.0) Red Cell Distribution Width 11.4 % (11.6-14.8) L Platelet Count 176 K/UL (150-450) Mean Platelet Volume 9.4 FL (6.5-10.1) Neutrophils (%) (Auto) 66.9 % (45.0-75.0) Lymphocytes (%) (Auto) 22.6 % (20.0-45.0) Monocytes (%) (Auto) 8.8 % (1.0-10.0) Eosinophils (%) (Auto) 1.1 % (0.0-3.0) Basophils (%) (Auto) 0.7 % (0.0-2.0) Sodium Level 139 MMOL/L (136-145) Potassium Level 3.2 MMOL/L (3.5-5.1) L Chloride Level 103 MMOL/L (98-107) Carbon Dioxide Level 22 MMOL/L (21-32) Anion Gap 14 mmol/L (5-15) Blood Urea Nitrogen 22 mg/dL (7-18) H Creatinine 1.7 MG/DL (0.55-1.30) H Estimat Glomerular Filtration Rate mL/min (>60) Glucose Level 81 MG/DL (74-106) Hemoglobin A1c 5.6 % (4.3-6.0) Uric Acid 6.3 MG/DL (2.6-7.2) Calcium Level 8.5 MG/DL (8.5-10.1) Phosphorus Level 3.1 MG/DL (2.5-4.9) Magnesium Level 1.9 MG/DL (1.8-2.4) Total Bilirubin 0.3 MG/DL (0.2-1.0) Gamma Glutamyl Transpeptidase 26 U/L (5-85) Aspartate Amino Transf (AST/SGOT) 20 U/L (15-37) Alanine Aminotransferase (ALT/SGPT) 21 U/L (12-78) Alkaline Phosphatase 65 U/L (46-116) Total Creatine Kinase 217 U/L (26-308) Troponin I 0.001 ng/mL (0.000-0.056) Pro-B-Type Natriuretic Peptide 820 pg/mL (0-125) H Total Protein 7.1 G/DL (6.4-8.2) Albumin 3.0 G/DL (3.4-5.0) L Globulin 4.1 g/dL Albumin/Globulin Ratio 0.7 (1.0-2.7) L Triglycerides Level 107 MG/DL (30-150) Cholesterol Level 128 MG/DL (< 200) LDL Cholesterol 51 mg/dL (<100) HDL Cholesterol 63 MG/DL (40-60) H Cholesterol/HDL Ratio 2.0 (3.3-4.4) L Thyroid Stimulating Hormone (TSH) 0.873 uiU/mL (0.358-3.740) Current Medications Medications (Trade) Dose Ordered Sig/Kathryn Route PRN Reason Start Time Stop Time Status Last Admin Dose Admin Acetaminophen (Tylenol) 650 mg Q4H PRN ORAL FEVER 03/22/17 11:00 04/21/17 10:59 03/24/17 08:49 Albuterol/ Ipratropium (Albuterol/ Ipratropium) 3 ml EVERY 4 HOURS PRN HHN Shortness of Breath 03/22/17 11:00 03/27/17 10:59 03/24/17 09:20 Amlodipine Besylate (Norvasc) 5 mg BID ORAL 03/23/17 19:00 04/22/17 18:59 03/24/17 08:51 Atenolol (Tenormin) 25 mg DAILY ORAL 03/23/17 09:00 04/22/17 08:59 03/24/17 08:50 Azithromycin (Zithromax) 500 mg DAILY ORAL 03/24/17 09:00 03/31/17 08:59 03/24/17 08:49 Ceftriaxone Sodium 1 gm/ Dextrose 55 ml @ 110 mls/hr Q24H IVPB 03/23/17 23:00 03/30/17 22:59 03/24/17 00:01 Dextrose (Dextrose 50%) STAT PRN IV Hypoglycemia 03/22/17 11:00 04/21/17 10:59 Dextrose/Sodium Chloride 1,000 ml @ 50 mls/hr Q20H IV 03/23/17 19:00 04/22/17 18:59 03/23/17 19:24 Heparin Sodium (Porcine) (Heparin 5000 units/ml) 5,000 units EVERY 12 HOURS SUBQ 03/22/17 21:00 04/21/17 20:59 03/24/17 08:54 Lansoprazole (Prevacid) 30 mg DAILY ORAL 03/23/17 19:00 04/22/17 18:59 03/24/17 08:51 Levothyroxine Sodium (Synthroid) 50 mcg DAILY@0630 ORAL 03/23/17 06:30 04/22/17 06:29 03/24/17 05:20 Lorazepam (Ativan 2mg/ml 1ml) 2 mg EVERY 2 HOURS PRN IV For Anxiety 03/22/17 11:00 03/29/17 10:59 Morphine Sulfate (Morphine Sulfate) 4 mg EVERY 4 HOURS PRN IVP Severe Pain (Pain Scale 7-10) 03/22/17 11:00 03/29/17 10:59 Ondansetron HCl (Zofran) 4 mg Q6H PRN IVP Nausea & Vomiting 03/22/17 11:00 04/21/17 10:59 Polyethylene Glycol (Miralax) 17 gm DAILYPRN PRN ORAL Constipation 03/22/17 11:00 04/21/17 10:59 Potassium Chloride (K-Dur) 40 meq ONCE ONCE ORAL 03/24/17 11:30 03/24/17 11:31 Promethazine HCl/ Codeine (Phenergan with Codeine) 5 ml Q6H PRN ORAL For Cough 03/23/17 18:00 04/22/17 17:59 03/24/17 01:32 Yeimi Mazariegos M.D. Mar 24, 2017 11:28
[2017-03-24 11:30] VITALS: BP 145/77
[2017-03-24] MEDS ORDERED: Vancomycin 750mg/NS 250ml IVPB SCH (15:00)
[2017-03-24] MEDS: D5NS 1,000 ML IV SCH (15:00)
--- NOTE | 2017-03-24 15:54 | Nephrology Progress Note ---
Assessment/Plan Problem List: (1) CKD (chronic kidney disease) (2) Hypertension (3) Pulmonary infection Assessment Admitted for respiratory infection renal failure- ? acute vs Chronic h/o Parathyroidectomy h/o Left breast surgery for Cancer h/o HTN h/o Diverticulitis h/o High Chol Plan Plan: Antibiotics slow hydration monitor labs and chemistries Pulmonary toilet check labs Subjective ROS Limited/Unobtainable: No Constitutional: Reports: malaise, weakness, other - cough ++ Objective Objective Last 24 Hour Vital Signs Date Time Temp Pulse Resp B/P (MAP) Pulse Ox O2 Delivery O2 Flow Rate FiO2 03/24/17 11:30 99.0 77 18 145/77 96 Room Air 03/24/17 09:48 99.0 03/24/17 09:27 90 18 99 Room Air 21 03/24/17 09:23 88 20 98 Room Air 21 03/24/17 09:20 79 20 Room Air 21 03/24/17 08:51 77 152/77 03/24/17 08:50 77 152/77 03/24/17 08:00 100.8 77 17 152/77 97 Room Air 03/24/17 04:00 98.2 66 20 121/67 89 03/24/17 00:00 99.9 69 21 140/69 93 03/24/17 00:00 Room Air 03/23/17 20:33 82 20 Room Air 21 03/23/17 20:00 102.0 72 18 142/64 92 03/23/17 19:23 77 155/69 03/23/17 16:00 98.1 77 20 155/69 93 Room Air Intake and Output 03/23/17 03/24/17 19:00 07:00 Intake Total 1083.334 ml 605 ml Balance 1083.334 ml 605 ml Intake Oral 750 ml IV Total 333.334 ml 605 ml # Voids 4 Laboratory Tests 03/24/17 01:30: Urine Random Sodium 33 03/24/17 05:00: White Blood Count 12.3H, Red Blood Count 4.11L, Hemoglobin 12.3, Hematocrit 36.4L, Mean Corpuscular Volume 89, Mean Corpuscular Hemoglobin 29.9, Mean Corpuscular Hemoglobin Concent 33.7, Red Cell Distribution Width 11.4L, Platelet Count 176, Mean Platelet Volume 9.4, Neutrophils (%) (Auto) 66.9, Lymphocytes (%) (Auto) 22.6, Monocytes (%) (Auto) 8.8, Eosinophils (%) (Auto) 1.1, Basophils (%) (Auto) 0.7, Sodium Level 139, Potassium Level 3.2L, Chloride Level 103, Carbon Dioxide Level 22, Anion Gap 14, Blood Urea Nitrogen 22H, Creatinine 1.7H, Estimat Glomerular Filtration Rate , Glucose Level 81, Hemoglobin A1c 5.6, Uric Acid 6.3, Calcium Level 8.5, Phosphorus Level 3.1, Magnesium Level 1.9, Total Bilirubin 0.3, Gamma Glutamyl Transpeptidase 26, Aspartate Amino Transf (AST/SGOT) 20, Alanine Aminotransferase (ALT/SGPT) 21, Alkaline Phosphatase 65, Total Creatine Kinase 217, Troponin I 0.001, Pro-B- Type Natriuretic Peptide 820H, Total Protein 7.1, Albumin 3.0L, Globulin 4.1, Albumin/Globulin Ratio 0.7L, Triglycerides Level 107, Cholesterol Level 128, LDL Cholesterol 51, HDL Cholesterol 63H, Cholesterol/HDL Ratio 2.0L, Thyroid Stimulating Hormone (TSH) 0.873 Height (Feet): 5 Height (Inches): 2.00 Weight (Pounds): 170 General Appearance: mild distress Respiratory/Chest: decreased breath sounds, rhonchi - bilaterally Abdomen: soft CINDY JUSTICE Mar 24, 2017 15:54
[2017-03-24 16:00] VITALS: BP 155/83
--- NOTE | 2017-03-24 18:02 | Pulmonology Progress Note ---
Assessment/Plan Problems: (1) Pneumonia (2) Anemia Assessment/Plan still coughing no phlegmn cultures pending anemia w/u pending renal us dvt prophylaxis. continue abx as per Id Subjective ROS Limited/Unobtainable: No Constitutional: Reports: no symptoms HEENT: Repors: no symptoms Allergies: Coded Allergies: No Known Allergies (Unverified , 10/31/15) Objective Last 24 Hour Vital Signs Date Time Temp Pulse Resp B/P (MAP) Pulse Ox O2 Delivery O2 Flow Rate FiO2 03/24/17 17:35 79 159/90 03/24/17 16:00 99.1 77 17 155/83 97 Room Air 03/24/17 11:30 99.0 77 18 145/77 96 Room Air 03/24/17 09:48 99.0 03/24/17 09:27 90 18 99 Room Air 21 03/24/17 09:23 88 20 98 Room Air 21 03/24/17 09:20 79 20 Room Air 21 03/24/17 08:51 77 152/77 03/24/17 08:50 77 152/77 03/24/17 08:00 100.8 77 17 152/77 97 Room Air 03/24/17 04:00 98.2 66 20 121/67 89 03/24/17 00:00 99.9 69 21 140/69 93 03/24/17 00:00 Room Air 03/23/17 20:33 82 20 Room Air 21 03/23/17 20:00 102.0 72 18 142/64 92 03/23/17 19:23 77 155/69 Intake and Output 03/23/17 03/24/17 19:00 07:00 Intake Total 1083.334 ml 605 ml Balance 1083.334 ml 605 ml Intake Oral 750 ml IV Total 333.334 ml 605 ml # Voids 4 Objective General Appearance: WN/WD HEENT: normocephalic, atraumatic Respiratory/Chest: chest wall non-tender, lungs clear Cardiovascular: normal peripheral pulses, normal rate Abdomen: normal bowel sounds, no organomegaly Extremities: no cyanosis Skin: no rash 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, alert Lymphatic: no neck adenopathy Microbiology Date/Time Source Procedure Growth Status 03/22/17 11:15 Blood Blood Culture - Preliminary NO GROWTH AFTER 24 HOURS Resulted 03/22/17 11:00 Blood Blood Culture - Preliminary NO GROWTH AFTER 24 HOURS Resulted 03/24/17 14:00 Nasopharynx Influenza Types A,B Antigen (MAVIS) - Final Complete 03/22/17 08:10 Nasal Nares Influenza Types A,B Antigen (MVAIS) - Final Complete Laboratory Tests 03/24/17 01:30: Urine Random Sodium 33 03/24/17 05:00: White Blood Count 12.3H, Red Blood Count 4.11L, Hemoglobin 12.3, Hematocrit 36.4L, Mean Corpuscular Volume 89, Mean Corpuscular Hemoglobin 29.9, Mean Corpuscular Hemoglobin Concent 33.7, Red Cell Distribution Width 11.4L, Platelet Count 176, Mean Platelet Volume 9.4, Neutrophils (%) (Auto) 66.9, Lymphocytes (%) (Auto) 22.6, Monocytes (%) (Auto) 8.8, Eosinophils (%) (Auto) 1.1, Basophils (%) (Auto) 0.7, Sodium Level 139, Potassium Level 3.2L, Chloride Level 103, Carbon Dioxide Level 22, Anion Gap 14, Blood Urea Nitrogen 22H, Creatinine 1.7H, Estimat Glomerular Filtration Rate , Glucose Level 81, Hemoglobin A1c 5.6, Uric Acid 6.3, Calcium Level 8.5, Phosphorus Level 3.1, Magnesium Level 1.9, Total Bilirubin 0.3, Gamma Glutamyl Transpeptidase 26, Aspartate Amino Transf (AST/SGOT) 20, Alanine Aminotransferase (ALT/SGPT) 21, Alkaline Phosphatase 65, Total Creatine Kinase 217, Troponin I 0.001, Pro-B- Type Natriuretic Peptide 820H, Total Protein 7.1, Albumin 3.0L, Globulin 4.1, Albumin/Globulin Ratio 0.7L, Triglycerides Level 107, Cholesterol Level 128, LDL Cholesterol 51, HDL Cholesterol 63H, Cholesterol/HDL Ratio 2.0L, Thyroid Stimulating Hormone (TSH) 0.873 Current Medications Medications (Trade) Dose Ordered Sig/Kathryn Route PRN Reason Start Time Stop Time Status Last Admin Dose Admin Acetaminophen (Tylenol) 650 mg Q4H PRN ORAL FEVER 03/22/17 11:00 04/21/17 10:59 03/24/17 08:49 Albuterol/ Ipratropium (Albuterol/ Ipratropium) 3 ml EVERY 4 HOURS PRN HHN Shortness of Breath 03/22/17 11:00 03/27/17 10:59 03/24/17 09:20 Amlodipine Besylate (Norvasc) 5 mg BID ORAL 03/23/17 19:00 04/22/17 18:59 03/24/17 17:35 Atenolol (Tenormin) 25 mg DAILY ORAL 03/23/17 09:00 04/22/17 08:59 03/24/17 08:50 Azithromycin (Zithromax) 500 mg DAILY ORAL 03/24/17 09:00 03/31/17 08:59 03/24/17 08:49 Ceftriaxone Sodium 1 gm/ Dextrose 55 ml @ 110 mls/hr Q24H IVPB 03/23/17 23:00 03/30/17 22:59 03/24/17 00:01 Dextrose (Dextrose 50%) STAT PRN IV Hypoglycemia 03/22/17 11:00 04/21/17 10:59 Dextrose/Sodium Chloride 1,000 ml @ 50 mls/hr Q20H IV 03/23/17 19:00 04/22/17 18:59 03/23/17 19:24 Heparin Sodium (Porcine) (Heparin 5000 units/ml) 5,000 units EVERY 12 HOURS SUBQ 03/22/17 21:00 04/21/17 20:59 03/24/17 08:54 Lansoprazole (Prevacid) 30 mg DAILY ORAL 03/23/17 19:00 04/22/17 18:59 03/24/17 08:51 Levothyroxine Sodium (Synthroid) 50 mcg DAILY@0630 ORAL 03/23/17 06:30 04/22/17 06:29 03/24/17 05:20 Lorazepam (Ativan 2mg/ml 1ml) 2 mg EVERY 2 HOURS PRN IV For Anxiety 03/22/17 11:00 03/29/17 10:59 Morphine Sulfate (Morphine Sulfate) 4 mg EVERY 4 HOURS PRN IVP Severe Pain (Pain Scale 7-10) 03/22/17 11:00 03/29/17 10:59 Ondansetron HCl (Zofran) 4 mg Q6H PRN IVP Nausea & Vomiting 03/22/17 11:00 04/21/17 10:59 Oseltamivir Phosphate (Tamiflu) 30 mg DAILY ORAL 03/24/17 15:00 03/29/17 14:59 03/24/17 15:48 Polyethylene Glycol (Miralax) 17 gm DAILYPRN PRN ORAL Constipation 03/22/17 11:00 04/21/17 10:59 Promethazine HCl/ Codeine (Phenergan with Codeine) 5 ml Q6H PRN ORAL For Cough 03/23/17 18:00 04/22/17 17:59 03/24/17 01:32 Vancomycin HCl (Vanco rx to dose) 1 ea DAILY PRN MISC Per rx protocol 03/24/17 13:15 04/23/17 13:14 Vancomycin/Sodium Chloride 250 ml @ 166.667 mls/hr Q24H IVPB 03/24/17 15:00 03/29/17 14:59 BRITTANEY BAGLEY Mar 24, 2017 18:02
[2017-03-24 19:45] VITALS: BP 144/83
[2017-03-25] MEDS: Promethazine/Codeine 5ml UD ORAL PRN ×2 (00:20→06:40)
[2017-03-25 03:45] VITALS: BP 140/76
[2017-03-25 07:29] LABS: BASOPHILS % (AUTO) 0.8 % (0.0-2.0); EOSINOPHILS % (AUTO) 6.3 % (0.0-3.0); HEMATOCRIT 36.6 % (37.0-47.0); LYMPHOCYTES % (AUTO) 30.2 % (20.0-45.0); MEAN CORPUSCULAR VOLUME 89 FL (80-99); MONOCYTES % (AUTO) 7.8 % (1.0-10.0); NEUTROPHILS % (AUTO) 54.9 % (45.0-75.0); PLATELET COUNT 202 K/UL (150-450); RED BLOOD COUNT 4.12 M/UL (4.20-5.40); RED CELL DISTRIBUTION WIDTH 11.6 % (11.6-14.8); WHITE BLOOD COUNT 9.9 K/UL (4.8-10.8)
[2017-03-25 07:40] LABS: ALANINE AMINOTRANSFERASE 23 U/L (12-78); ALBUMIN/GLOBULIN RATIO 0.7 (1.0-2.7); ALKALINE PHOSPHATASE 70 U/L (46-116); ANION GAP 11 mmol/L (5-15); ASPARTATE AMINO TRANSFERASE 21 U/L (15-37); BILIRUBIN,TOTAL 0.3 MG/DL (0.2-1.0); BLOOD UREA NITROGEN 23 mg/dL (7-18); CALCIUM 8.5 MG/DL (8.5-10.1); CARBON DIOXIDE 22 MMOL/L (21-32); CHLORIDE 107 MMOL/L (98-107); CREATININE 1.4 MG/DL (0.55-1.30); SODIUM 140 MMOL/L (136-145)
[2017-03-25 08:17] VITALS: BP 138/68
--- NOTE | 2017-03-25 08:30 | Diagnostic Imaging Report ---
Indication: Abnormal renal function tests Technique: Grayscale and duplex images of the kidneys, retroperitoneum, and bladder were obtained. Comparison: Findings: Right kidney measures 10.3 cm in length. Left kidney measures 10.2 cm in length. Both kidneys demonstrate normal echogenicity. There is mild right hydronephrosis. There are cysts in the left kidney and right renal sinus and parenchymal echoes bilaterally could represent small calcifications or may be artifactual. Normal inferior vena cava. Bladder cysts demonstrates bilateral ureteral jets. Prevoid bladder volume 116 mL. Postvoid bladder volume 37 mL. Impression: Mild right hydronephrosis, etiology not demonstrated. Consider CT for further evaluation if clinically indicated Bilateral renal sinus and parenchymal echogenic foci, calculi versus artifact Postvoid bladder volume 37 mL Incidental finding of left renal cysts.
[2017-03-25] MEDS: Atenolol 25mg tab ORAL SCH (09:32)
[2017-03-25] MEDS: Azithromycin 250mg tab ORAL SCH (09:33)
[2017-03-25] MEDS: Heparin 5000 units/ml inj SUBQ SCH (09:40)
[2017-03-25] MEDS ORDERED: Heparin 2000 units/Ns 1000ml INJ PRN (10:00)
[2017-03-25] MEDS ORDERED: Lidocaine 1% Plain 30 ml INJ PRN (10:00)
--- NOTE | 2017-03-25 11:01 | Diagnostic Imaging Report ---
Indication: Dyspnea Technique: One view of the chest Comparison: 03/22/2017 Findings: No acute infiltrates, effusions, or congestion. Tortuous calcified aorta. Normal heart size. Upper mediastinum unremarkable. Previously demonstrated interstitial congestion has resolved Impression: No acute process.
[2017-03-25 11:44] VITALS: BP 122/64
--- NOTE | 2017-03-25 11:46 | Infectious Diseases Prog Note ---
Assessment/Plan Assessment/Plan Assessment: Cough/congestion- 2ry to Bronchitis, no PNA on repeat CXR. high suspicion for iNfluenza (despite neg test): +body aches, runny nose/sore throat, +congestion, grandson recently with Flu -influenza neg x2 -CXR 03/25: No acute process. -CXR: nonspecific interstitial prominence with asymmetric streaky opacities in the right mid/lower lung which may be related to atelectasis or scarring however developing pneumonia is not entirely excluded. Leukocytosis, resolved -u/a no pyuria -Bcx NTD Fever, improving HTN CKD Parathyroidectomy Left breast surgery for Cancer hysterectomy L knee surgery cataract surgery Diverticulitis HLD Plan: -Switch Ceftriaxone #3 and Azithromycin abx d#4, Vanco #2 to PO Levaquin for bronchitis (no PNA on CXR) and continue for 3 more days -Continue empiric Tamiflu #2/5 -03/23 SP IV Vanco, Cefepime #2 -f/u cx -Monitor CBC/BMP, temperatures -aspiration precautions -patient wants to go home; she is currently stable, at [facility], afebrile in 24hrs and resolved leukocytosis- she will be stable for discharge with strict precautions Thank you for this consultation. Will continue to follow along with you. Discussed with RN and patient's daughter. Subjective Allergies: Coded Allergies: No Known Allergies (Unverified , 10/31/15) Subjective afebrile in 24hrs leukocytosis resolved at [facility] repeat CXR with no PNA. +cough is the most bothersome for the patient Objective Vital Signs Last 24 Hour Vital Signs Date Time Temp Pulse Resp B/P (MAP) Pulse Ox O2 Delivery O2 Flow Rate FiO2 03/25/17 09:32 76 138/68 03/25/17 08:17 98.1 76 20 138/68 94 03/25/17 03:45 98.9 74 18 140/76 94 03/24/17 19:45 98.8 76 20 144/83 95 Room Air 03/24/17 19:30 75 20 Room Air 21 03/24/17 17:35 79 159/90 03/24/17 16:00 99.1 77 17 155/83 97 Room Air Height (Feet): 5 Height (Inches): 2.00 Weight (Pounds): 170 Objective General Appearance: WD/WN HEENT: normocephalic, atraumatic Respiratory/Chest: chest wall non-tender, lungs clear Breasts: no masses Cardiovascular: normal peripheral pulses, no JVD Abdomen: soft, non tender Genitourinary: normal external genitalia Extremities: no cyanosis Skin: no ulcers Neurologic/Psychiatric: alert, responsive Microbiology Date/Time Source Procedure Growth Status 03/24/17 14:00 Nasopharynx Influenza Types A,B Antigen (MAVIS) - Final Complete Laboratory Tests Test 03/25/17 05:50 White Blood Count 9.9 K/UL (4.8-10.8) Red Blood Count 4.12 M/UL (4.20-5.40) L Hemoglobin 12.0 G/DL (12.0-16.0) Hematocrit 36.6 % (37.0-47.0) L Mean Corpuscular Volume 89 FL (80-99) Mean Corpuscular Hemoglobin 29.2 PG (27.0-31.0) Mean Corpuscular Hemoglobin Concent 32.8 G/DL (32.0-36.0) Red Cell Distribution Width 11.6 % (11.6-14.8) Platelet Count 202 K/UL (150-450) Mean Platelet Volume 9.7 FL (6.5-10.1) Neutrophils (%) (Auto) 54.9 % (45.0-75.0) Lymphocytes (%) (Auto) 30.2 % (20.0-45.0) Monocytes (%) (Auto) 7.8 % (1.0-10.0) Eosinophils (%) (Auto) 6.3 % (0.0-3.0) H Basophils (%) (Auto) 0.8 % (0.0-2.0) Sodium Level 140 MMOL/L (136-145) Potassium Level 4.0 MMOL/L (3.5-5.1) Chloride Level 107 MMOL/L (98-107) Carbon Dioxide Level 22 MMOL/L (21-32) Anion Gap 11 mmol/L (5-15) Blood Urea Nitrogen 23 mg/dL (7-18) H Creatinine 1.4 MG/DL (0.55-1.30) H Estimat Glomerular Filtration Rate mL/min (>60) Glucose Level 72 MG/DL (74-106) L Calcium Level 8.5 MG/DL (8.5-10.1) Total Bilirubin 0.3 MG/DL (0.2-1.0) Aspartate Amino Transf (AST/SGOT) 21 U/L (15-37) Alanine Aminotransferase (ALT/SGPT) 23 U/L (12-78) Alkaline Phosphatase 70 U/L (46-116) Pro-B-Type Natriuretic Peptide 672 pg/mL (0-125) H Total Protein 7.3 G/DL (6.4-8.2) Albumin 3.0 G/DL (3.4-5.0) L Globulin 4.3 g/dL Albumin/Globulin Ratio 0.7 (1.0-2.7) L Current Medications Medications (Trade) Dose Ordered Sig/Kathryn Route PRN Reason Start Time Stop Time Status Last Admin Dose Admin Acetaminophen (Tylenol) 650 mg Q4H PRN ORAL FEVER 03/22/17 11:00 04/21/17 10:59 03/24/17 08:49 Albuterol/ Ipratropium (Albuterol/ Ipratropium) 3 ml EVERY 4 HOURS PRN HHN Shortness of Breath 03/22/17 11:00 03/27/17 10:59 03/24/17 09:20 Amlodipine Besylate (Norvasc) 5 mg BID ORAL 03/23/17 19:00 04/22/17 18:59 03/24/17 17:35 Atenolol (Tenormin) 25 mg DAILY ORAL 03/23/17 09:00 04/22/17 08:59 03/25/17 09:32 Azithromycin (Zithromax) 500 mg DAILY ORAL 03/24/17 09:00 03/31/17 08:59 03/25/17 09:33 Ceftriaxone Sodium 1 gm/ Sodium Chloride 55 ml @ 110 mls/hr Q24H IVPB 03/25/17 23:00 04/01/17 22:59 Chlorhexidine Gluconate (Franchesca-Hex 2%) 1 applic DAILY@2000 TOPIC 03/25/17 20:00 04/24/17 19:59 Dextrose (Dextrose 50%) STAT PRN IV Hypoglycemia 03/22/17 11:00 04/21/17 10:59 Dextrose/Sodium Chloride 1,000 ml @ 50 mls/hr Q20H IV 03/23/17 19:00 04/22/17 18:59 03/23/17 19:24 Heparin Sodium (Porcine) (Heparin 5000 units/ml) 5,000 units EVERY 12 HOURS SUBQ 03/22/17 21:00 04/21/17 20:59 03/25/17 09:40 Heparin Sodium/ Sodium Chloride (Heparin 2000 units/Ns 1000ml premix) 2,000 unit ONCE PRN INJ PICC PLACEMENT 03/25/17 10:00 03/27/17 23:59 Lansoprazole (Prevacid) 30 mg DAILY ORAL 03/23/17 19:00 04/22/17 18:59 03/25/17 09:32 Levothyroxine Sodium (Synthroid) 50 mcg DAILY@0630 ORAL 03/23/17 06:30 04/22/17 06:29 03/25/17 06:40 Lidocaine HCl (Xylocaine 1% 30ml) 30 ml ONCE PRN INJ PICC PLACEMENT 03/25/17 10:00 03/27/17 23:59 Lorazepam (Ativan 2mg/ml 1ml) 2 mg EVERY 2 HOURS PRN IV For Anxiety 03/22/17 11:00 03/29/17 10:59 Morphine Sulfate (Morphine Sulfate) 4 mg EVERY 4 HOURS PRN IVP Severe Pain (Pain Scale 7-10) 03/22/17 11:00 03/29/17 10:59 Ondansetron HCl (Zofran) 4 mg Q6H PRN IVP Nausea & Vomiting 03/22/17 11:00 04/21/17 10:59 Oseltamivir Phosphate (Tamiflu) 30 mg DAILY ORAL 03/24/17 15:00 03/29/17 14:59 03/25/17 09:38 Polyethylene Glycol (Miralax) 17 gm DAILYPRN PRN ORAL Constipation 03/22/17 11:00 04/21/17 10:59 Promethazine HCl/ Codeine (Phenergan with Codeine) 5 ml Q6H PRN ORAL For Cough 03/23/17 18:00 04/22/17 17:59 03/25/17 06:40 Vancomycin HCl (Vanco rx to dose) 1 ea DAILY PRN MISC Per rx protocol 03/24/17 13:15 04/23/17 13:14 Vancomycin/Sodium Chloride 250 ml @ 166.667 mls/hr Q24H IVPB 03/24/17 15:00 03/29/17 14:59 Yeimi Mazariegos M.D. Mar 25, 2017 11:46
--- NOTE | 2017-03-25 12:30 | Nephrology Progress Note ---
Assessment/Plan Problem List: (1) CKD (chronic kidney disease) (2) Hypertension (3) Pulmonary infection Assessment Admitted for respiratory infection renal failure- ? acute vs Chronic Cr down 1.4 h/o Parathyroidectomy h/o Left breast surgery for Cancer h/o HTN h/o Diverticulitis h/o High Chol Plan Plan: Patient anxious to be discharged Antibiotics monitor labs and chemistries Pulmonary toilet per PMD Subjective ROS Limited/Unobtainable: No Objective Objective Last 24 Hour Vital Signs Date Time Temp Pulse Resp B/P (MAP) Pulse Ox O2 Delivery O2 Flow Rate FiO2 03/25/17 11:44 97.3 66 20 122/64 96 03/25/17 09:32 76 138/68 03/25/17 08:17 98.1 76 20 138/68 94 03/25/17 03:45 98.9 74 18 140/76 94 03/24/17 19:45 98.8 76 20 144/83 95 Room Air 03/24/17 19:30 75 20 Room Air 21 03/24/17 17:35 79 159/90 03/24/17 16:00 99.1 77 17 155/83 97 Room Air Intake and Output 03/24/17 03/25/17 19:00 07:00 Intake Total 480 ml Balance 480 ml Other 480 ml # Voids 4 # Bowel Movements 2 Laboratory Tests 03/25/17 05:50: White Blood Count 9.9, Red Blood Count 4.12L, Hemoglobin 12.0, Hematocrit 36.6L , Mean Corpuscular Volume 89, Mean Corpuscular Hemoglobin 29.2, Mean Corpuscular Hemoglobin Concent 32.8, Red Cell Distribution Width 11.6, Platelet Count 202, Mean Platelet Volume 9.7, Neutrophils (%) (Auto) 54.9, Lymphocytes (% ) (Auto) 30.2, Monocytes (%) (Auto) 7.8, Eosinophils (%) (Auto) 6.3H, Basophils (%) (Auto) 0.8, Sodium Level 140, Potassium Level 4.0, Chloride Level 107, Carbon Dioxide Level 22, Anion Gap 11, Blood Urea Nitrogen 23H, Creatinine 1.4H , Estimat Glomerular Filtration Rate , Glucose Level 72L, Calcium Level 8.5, Total Bilirubin 0.3, Aspartate Amino Transf (AST/SGOT) 21, Alanine Aminotransferase (ALT/SGPT) 23, Alkaline Phosphatase 70, Pro-B-Type Natriuretic Peptide 672H, Total Protein 7.3, Albumin 3.0L, Globulin 4.3, Albumin/Globulin Ratio 0.7L Height (Feet): 5 Height (Inches): 2.00 Weight (Pounds): 170 General Appearance: no apparent distress, other - anxious- still coughing Cardiovascular: regular rhythm Respiratory/Chest: decreased breath sounds CINDY JUSTICE Mar 25, 2017 12:30
[2017-03-25] MEDS ORDERED: Tubing IV Secondary IV ONE (12:59)
--- NOTE | 2017-03-25 19:11 | Pulmonology Progress Note ---
Assessment/Plan Problems: (1) Pneumonia (2) Anemia Assessment/Plan getting beeter cultures pending renal us dvt prophylaxis. continue abx as per Id pt wants to go home with oral abx Subjective ROS Limited/Unobtainable: No Constitutional: Reports: no symptoms HEENT: Repors: no symptoms Respiratory: Reports: no symptoms Allergies: Coded Allergies: No Known Allergies (Unverified , 10/31/15) Objective Last 24 Hour Vital Signs Date Time Temp Pulse Resp B/P (MAP) Pulse Ox O2 Delivery O2 Flow Rate FiO2 03/25/17 11:44 97.3 66 20 122/64 96 03/25/17 09:32 76 138/68 03/25/17 08:17 98.1 76 20 138/68 94 03/25/17 03:45 98.9 74 18 140/76 94 03/24/17 19:45 98.8 76 20 144/83 95 Room Air 03/24/17 19:30 75 20 Room Air 21 Intake and Output 03/24/17 03/25/17 19:00 07:00 Intake Total 480 ml Balance 480 ml Other 480 ml # Voids 4 # Bowel Movements 2 Objective General Appearance: WN/WD HEENT: normocephalic, atraumatic Respiratory/Chest: chest wall non-tender, lungs clear Cardiovascular: normal peripheral pulses, normal rate Abdomen: normal bowel sounds, no organomegaly Extremities: no cyanosis Skin: no rash 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, alert Lymphatic: no neck adenopathy Microbiology Date/Time Source Procedure Growth Status 03/24/17 14:00 Nasopharynx Influenza Types A,B Antigen (MAVIS) - Final Complete Laboratory Tests 03/25/17 05:50: White Blood Count 9.9, Red Blood Count 4.12L, Hemoglobin 12.0, Hematocrit 36.6L , Mean Corpuscular Volume 89, Mean Corpuscular Hemoglobin 29.2, Mean Corpuscular Hemoglobin Concent 32.8, Red Cell Distribution Width 11.6, Platelet Count 202, Mean Platelet Volume 9.7, Neutrophils (%) (Auto) 54.9, Lymphocytes (% ) (Auto) 30.2, Monocytes (%) (Auto) 7.8, Eosinophils (%) (Auto) 6.3H, Basophils (%) (Auto) 0.8, Sodium Level 140, Potassium Level 4.0, Chloride Level 107, Carbon Dioxide Level 22, Anion Gap 11, Blood Urea Nitrogen 23H, Creatinine 1.4H , Estimat Glomerular Filtration Rate , Glucose Level 72L, Calcium Level 8.5, Total Bilirubin 0.3, Aspartate Amino Transf (AST/SGOT) 21, Alanine Aminotransferase (ALT/SGPT) 23, Alkaline Phosphatase 70, Pro-B-Type Natriuretic Peptide 672H, Total Protein 7.3, Albumin 3.0L, Globulin 4.3, Albumin/Globulin Ratio 0.7L BRITTANEY BAGLEY Mar 25, 2017 19:11
[2017-03-25] MEDS ORDERED: Dyna-Hex 2% Top Sol 2oz TOPIC SCH (20:00)
[2017-03-25] MEDS ORDERED: cefTRIAXone 1 GM in NS 55 ML IVPB SCH (23:00)
--- NOTE | 2017-03-26 12:18 | Discharge Summary ---
Discharge Summary Hospital Course Date of Admission Mar 22, 2017 at 09:47 Date of Discharge Mar 25, 2017 at 13:00 Admitting Diagnosis pneumonia HPI Kenan Calix is a 71 year old female who was admitted on Mar 22, 2017 at 09:47 for Pneumonia Hospital Course [id number] Discharge Discharge Disposition Patient was discharged to Home (01) Discharge Diagnoses: Kristy Lopez NP Mar 26, 2017 12:18
--- NOTE | 2017-03-26 12:18 | Discharge Summary ---
Discharge Summary Hospital Course Date of Admission Mar 22, 2017 at 09:47 Date of Discharge Mar 25, 2017 at 13:00 Admitting Diagnosis pneumonia HPI Kenan Calix is a 71 year old female who was admitted on Mar 22, 2017 at 09:47 for Pneumonia Hospital Course [id number] Discharge Discharge Disposition Patient was discharged to Home (01) Discharge Diagnoses: Kristy Lopez NP Mar 26, 2017 12:18
--- NOTE | 2017-03-27 12:56 | Discharge Summary 2 SIG ---
DATE OF ADMISSION: 03/22/2017 DATE OF DISCHARGE: 03/25/2017 CONSULTANTS: 1. Ced Currie M.D. 2. Yeimi Mazariegos M.D. BRIEF HOSPITAL COURSE: The patient is a 71-year-old female with history of renal insufficiency presented to ER complaining of several days of cough with chest pain and flu-like symptoms. Denies nausea, vomiting, diarrhea, dysuria. She has medical history significant for left mastectomy, knee surgery, and cataract surgery. On evaluation at ED, WBC was 7.6. Troponin was negative. Creatinine was 1.8 and BUN 32. She was given breathing treatment and chest x-ray showed right middle lobe infiltrate. Rapid influenza screen was negative. She was then admitted to medical floor for evaluation of pneumonia and renal insufficiency. She was given initially vancomycin and cefepime. It was changed to ceftriaxone and azithromycin by Infectious Disease specialist. She had a history of chronic renal failure and was given IV hydration. Renal ultrasound done showed mild right hydronephrosis. She continued to cough and was started empirically on Tamiflu as there was high suspicion for influenza despite negative screening test. Antibiotic was switched to Levaquin. Leukocytosis resolved. O2 saturation was stable at room air. Creatinine downtrended. She was eventually cleared for discharge. FINAL DIAGNOSES: 1. Community-acquired pneumonia. 2. Anemia. 3. Acute on chronic renal failure. 4. Hypertension. 5. High suspicion for influenza. 6. Parathyroidectomy. 7. Left breast surgery for CA. 8. Hysterectomy. 9. Left knee surgery. 10. Cataract surgery. 11. Hyperlipidemia. DISPOSITION: The patient was discharged home. DISCHARGE MEDICATIONS: The patient was discharged home with a prescription for antibiotics. DISCHARGE INSTRUCTIONS: Followup with PMD in a week. Delvin Kelly M.D. I have been assigned to dictate discharge summary on this account and I was not involved in the patient's management. Kristy Lopez N.P. DR: Apoorva JOB#: [id number] CC: ASHOK
--- NOTE | 2017-03-30 13:51 | Cardiology Report ---
APPROVED REPORT EKG Measurement Heart [id number] FL [id number] [id number] Normal sinus rhythm Possible Left atrial enlargement Right bundle branch block Abnormal ECG
== END 2017-03-25 13:00 | disposition home or self-care (01) | DRG 194 ==
LOC: EMR 08:05 → 4W 09:47 → EDBEDREQ 10:24
DX: J11.00 Influenza due to unidentified influenza virus with unspecified type of pneumonia (principal); N17.9 Acute kidney failure, unspecified; D64.9 Anemia, unspecified; I12.9 Hypertensive chronic kidney disease with stage 1 through stage 4 chronic kidney disease, or unspecified chronic kidney disease; N18.9 Chronic kidney disease, unspecified; E89.2 Postprocedural hypoparathyroidism; Z85.3 Personal history of malignant neoplasm of breast; E78.5 Hyperlipidemia, unspecified; Z90.710 Acquired absence of both cervix and uterus; Z90.12 Acquired absence of left breast and nipple; K21.9 Gastro-esophageal reflux disease without esophagitis; Z23 Encounter for immunization
CPT/HCPCS: 36415; 71045; 76775; 80053; 80061; 80069; 81003; 82550; 82962; 82977; 83036; 83735; 83880; 84100; 84133; 84300; 84443; 84484; 84550; 85025; 85610; 85730; 86140; 86710; 87040; 89050; 90630; 90732; 93005; 94640; 94664; 99285; J7620; J8499